=== PATIENT | female | born 1970 | race Caucasian/White ===

== ENCOUNTER 2017-10-31 08:00 | Outpatient (CLI) | payer OTHER | END 2017-10-31 08:01 | disposition home or self-care (01) | LOC: BICULT 08:00 | PROVIDERS: ATTEND Nurse Practitioner | DX: N93.9 Abnormal uterine and vaginal bleeding, unspecified (principal); R93.8 Abnormal findings on diagnostic imaging of other specified body structures; N85.00 Endometrial hyperplasia, unspecified | CPT/HCPCS: 76856 ==